=== PATIENT | female | born 1960 | race Caucasian/White ===

== ENCOUNTER 2018-11-11 05:34 | Inpatient (IN) ==
[2018-11-11] MEDS ORDERED: ceFAZolin Inj 2gm (Premix) 2 GM/50 ML BAG IV ONE ×2 (05:54→06:00)
[2018-11-11] MEDS ORDERED: Lactated Ringers 1,000 ML PRIMARY IV ONE ×2 (05:54→06:00)
[2018-11-11] MEDS ORDERED: LIDOCAINE W/ SODIUM BICARB 0.5 ML SYR ONE (05:54)
[2018-11-11] MEDS ORDERED: Vancomycin Inj 1gm vial ONE (05:55)
[2018-11-11] MEDS ORDERED: Sodium Chloride 0.9% 250 ML ONE ×2 (05:56→06:58)
[2018-11-11] MEDS ORDERED: LIDOCAINE W/ SODIUM BICARB 0.5 ML SYR SUBD ONE (06:00)
[2018-11-11] MEDS ORDERED: Nasal Sanitizer POPSWAB ampule 3 AMP (Nozin) PREOP DOSE ENOS SCH (06:00)
[2018-11-11 06:17] LABS: BILIRUBIN,URINE NEGATIVE (NEG); CLARITY,URINE CLEAR (CLEAR); COLOR,URINE YELLOW (Y); GLUCOSE, URINE (UA) NEGATIVE (NEG); OCCULT BLOOD,URINE NEGATIVE (NEG); PH,URINE 7.5 (5.0-8.5); PROTEIN,URINE TRACE mg/dl (NEG); UROBILINOGEN,URINE 0.2 EU/dL (0.2)
[2018-11-11 06:20] LABS: URINE SAMPLE TYPE CLEAN CATCH URINE
[2018-11-11] MEDS ORDERED: REMIFENTANIL 1 MG/1 ML IV ONE (06:38)
[2018-11-11] MEDS ORDERED: MIDAZOLAM 5 MG/1 ML ONE (06:38)
[2018-11-11] MEDS ORDERED: REMIFENTANIL HCL 2 MG VIAL IV ONE (06:39)
[2018-11-11] MEDS ORDERED: fentaNYL Inj 250 MCG/5 ML VIAL ONE (06:39)
[2018-11-11] MEDS ORDERED: LIDOCAINE MPF 2% - 5 ML (20 MG/1 ML) ONE (06:43)
[2018-11-11] MEDS ORDERED: Sodium Chloride 0.9% vial 10 ML ONE ×2 (06:44→07:46)
[2018-11-11] MEDS ORDERED: Propofol 1,000 MG/100 ML VIAL IV ONE ×2 (06:58→16:15)
[2018-11-11] MEDS ORDERED: THROMBIN (BOVINE) 20,000 UNIT KIT TOPICAL ONE (07:46)
[2018-11-11] MEDS ORDERED: BACITRACIN 50,000 UNIT VIAL IRRIG ONE (07:46)
[2018-11-11] MEDS ORDERED: KETAMINE HCL 100 MG/2 ML SYRINGE IV ONE (07:50)
[2018-11-11] MEDS ORDERED: DEXAMETHASONE PF 10 MG/1 ML VIAL ONE (08:13)
[2018-11-11] MEDS ORDERED: GLYCOPYRROLATE 0.2 MG/1 ML VIAL ONE (08:13)
[2018-11-11] MEDS ORDERED: LIDOCAINE W/ SODIUM BICARB 0.5 ML SYR SUBD PRN (09:13)
[2018-11-11] MEDS ORDERED: ATROPINE SULFATE 0.4 MG/1 ML VIAL IVP PRN (09:13)
[2018-11-11] MEDS ORDERED: Prochlorperazine Edisylate Inj 10mg/2ml vial IVP PRN (09:13)
[2018-11-11] MEDS ORDERED: fentaNYL Inj 100 MCG/2 ML VIAL IVP PRN (09:13)
[2018-11-11] MEDS ORDERED: Lactated Ringers 1,000 ML PRIMARY IV SCH (09:15)
[2018-11-11] MEDS ORDERED: IPRATROPIUM/ALBUTEROL SULFATE 3 ML NEB NEB ONE (09:15)
--- NOTE | 2018-11-11 09:16 | CRNA.PROGR ---
Anesthesia Time - Procedure/Recovery Time Start Date: 11/11/18 End Date: 11/11/18 Anesthesia : Time In: 07:57 Anesthesia : Time Out: 11:39 Anesthesia : Total Time: 222 - Total Anesthesia Time Total Anesthesia Time (minutes): 222 - Other Weight: 71.214 kg Height: 5 ft 5 in Body Mass Index (BMI): 26.1 Physical Status: P3 (ASCVD) Anesthesia Type: General Anesthesia : ET (NIMS Technique)
--- NOTE | 2018-11-11 09:17 | CRNA.PROGR ---
Anesthesia Recovery Phase I - Post Anesthesia Evaluation Patient's Condition on Arrival in Phase I: Stable Patient's Condition on Arrival in Phase II: Stable Pain Level: 6 (medicated)
--- NOTE | 2018-11-11 09:17 | CRNA.PROGR ---
Post Anesthesia Phase II - Post Anesthesia Phase II Patient Stable and Discharged To: Phase II Care Assumed By Surgeon: Abhilash Gomes MD Temperature: 96.8 F Pulse Rate: 59 Respiratory Rate: 16 Blood Pressure: 125/76 Pulse Ox: 96
[2018-11-11] MEDS ORDERED: ePHEDrine Inj 50 MG/ML AMP ONE (09:21)
[2018-11-11] MEDS ORDERED: ONDANSETRON 4 MG/2 ML VIAL ONE (11:18)
--- NOTE | 2018-11-11 11:22 | OPNOTE.NEU ---
Operative Note Operative Note: Neurosurgical Services Operative Note [facility] [id number] BASHIR SANCHEZ Date of Surgery: 11/11/18 Preoperative Diagnosis: CERVICAL DISC DISORDER WITH RADICULOPATHY; C6-7, C7-T1 Post-Op Diagnosis Codes: Cervical disc disorder with radiculopathy; C6-7, C7-T1 Procedure(s): C6-7, C7-T1 Anterior Cervical Decompression and Fusion 1. Anterior cervical decompression; 37675, 28453 2. Anterior cervical arthrodesis; (63970, 16592) 3. Allograft structural graft placement; [id number] 4. Preparation of bone graft: A. Local autograft, same incision; B. [place] of morselized iliac crest autograft, separate incision; C. [place] of bone marrow aspirate, iliac crest; D. Addition of osteopromotive calcium compound; allograft DBM; 5. Anterior Cervical Instrumentation; 72134 6. Intraoperative microsurgical technique, microscopy; [id number] 7. Intraoperative fluoroscopy, [id number] 8. Continuous intraoperative motor and sensory neural monitoring Surgeon(s): Abhilash Gomes MD Meter Maker(s): BHAVANI Acuna Anesthesia: General Anesthesia Anesthesiologist / CLINICAL MANAGER: Linsey Dover CRNA Brief Findings: Herniated discs at both levels bilaterally. Procedure(s): We discussed the procedure, risks, advantages and disadvantages of surgical intervention at length. To prevent further pain, disability and potential progression of neurologic deficits, the patient would like to proceed with surgery. Introduction: After obtaining informed consent, careful consideration of the pre-operative studies and evaluation, the patient asked to proceed with surgery. The patient was taken to the operating room, given an anesthetic, positioned and prepared for surgery. All pressure points were meticulously padded and great care was taken to insure the patient was appropriately positioned to avoid any abnormal strain on the extremities or any other area. The operative region was prepared with iodine solution and isolated aseptically using routine sterile draping. Position / Approach: The patient was placed in the supine position such that an anterior approach could be taken to the cervical levels. Exposure: A right transverse neck incision at the abnormal level which was confirmed using fluoroscopy was made through skin, subcutaneous fat and the platysma muscle. Using sharp and blunt dissection, the anterior spine was exposed medial to the sternocleidomastoid muscle and carotid sheath and the longus coli muscles were carefully reflected off the vertebrae using electrocautery and a deep self-retaining retractor was place beneath them. Thereafter, distraction pins were place within the vertebral bodies above and below the abnormal levels. The inner space was then distracted to improve exposure during the decompression. DECOMPRESSION: While distracting the interspace, a radical discectomy was performed. After removal of the disk using curettes considerable posterior osteophytosis was encountered and disc herniation was identified bilaterally at both levels. The osteophytes were removed using a high speed drill equipped with a katie bur, microsurgical technique and the intraoperative microscope for visualization. There was clear evidence of compression upon the exiting nerve root and spinal cord. The posterior longitudinal ligament was taken down and wide foraminotomies were fashioned on both sides. The epidural space was explored extensively confirming no further compression upon the neural elements. ARTHRODESIS: After the decompression, the height of the inner space was measured and an allograft bone graft was selected which would fit snuggly within the space. The graft was loaded with bone graft which was prepared as described. The graft was placed using the fluoroscope to assess the graft position so that it could be countersunk appropriately. Grafts were placed at both levels. HARVEST / PREPARATION of BONE GRAFT: The "bone graft" was prepared from the patient's own bone derived from the left hip collected by curetting bone from the hip through a separate slab incision(). This morselized bone was admixed with bone marrow aspirate also obtained from the hip (). Autologous local bone which was removed during the decompression through the same incision used for the fusion was stripped of surrounding soft tissues, morselized () and mixed with osteopromotive calcium compound as well as allograft demineralized bone matrix (), and this was combined with the previously described hip graft and concentrated bone marrow aspirate to form the "bone graft." ANTERIOR PLATE INSTRUMENTATION: Having completed the decompression and placement of the interbody spacers, an Alphatec Trestle plate was selected which spanned the levels and also could be contoured to the anterior aspect of the patient's cervical spine. Osteophytes along the anterior spine were removed to allow the plate to conform to the spine appropriately. The plate was then secured to the spine using 14-16 mm screws, all of which were locked into position using the locking mechanism of the plate. Additional bone graft material was placed around the plate and around the implanted spacer within the inner space. NEED FOR LICENSED NURSE PRACTITIONER: Luis Packer PA-C, was instrumental throughout the operation to assist with exposure of the neural structures and protect them as the bony elements were removed. He was also instrumental during placement of the implant(s) which often takes more than two hands to perform safely and efficiently. OTHER TOOLS USED / UTILITY All manipulation of the neural elements was performed using the microscope for visualization. As well, the fluoroscope was used to confirm the levels as indicated as well as to assist during implant placement and later to assess the patient's spinal alignment. There were no intra operative complications. CLOSURE: The wound was irrigated with copious amounts of antibiotic impregnated saline solution and immaculate hemostasis was achieved using thrombin soaked Gelfoam, bone wax along the bony margins, as well as electrocautery. Surgicel was used to cover the implanted graft and plate. A drain was placed in the pre- vertebral space and tunneled to an exit site lateral to the formed incision. The wound was then closed in anatomical layers using Vicryl suture in the subcutaneous tissue layers followed by Steri-Strips on the skin. Estimated Blood Loss: 25 cc Operative hemorrhage? Yes, expected amount. Drains: Hemovac Condition: Good Complications: None Authenticated by Dr. Gomes On Production
[2018-11-11] MEDS: HYDROmorphone 2 MG/1 ML IVP PRN ×2 (11:50→12:10)
[2018-11-11] MEDS ORDERED: HYDROmorphone 2 MG/1 ML ONE (11:51)
--- NOTE | 2018-11-11 12:42 | DI ---
XR C-SPINE 2-3 VW 11/11/2018 11:14 AM History: [facility] [place] [facility] ^Post op baseline alignment Comparison: Cervical spine x-ray 04/01/2018. Findings: AP, swimmer's, and lateral views of the cervical spine are submitted. The anterior C5/6 figueroa rdware is no longer present. The patient is now status post anterior C6-T1 fusion with interbody spac er placement. Drain tubing projects over the prevertebral soft tissues. There is no evidence of hardw are fracture or loosening. There is no acute fracture. There is grade 1 anterolisthesis of C3 on C4 a nd C4 on C5. C1 articulates normally with C2 and the occiput. No cervical ribs are seen. Visualized p ortions of the lung apices, paranasal sinuses, and mastoid air cells are clear. Atheromatous calcific ations are noted in the aortic arch. Impression: 1. Status post anterior C6-T1 fusion with interbody spacer placement. There is no evidence of hardwar e failure. There is grade 1 anterolisthesis of C3 on C4 and C4 on C5. Correlate with desired surgical outcome.
[2018-11-11] MEDS ORDERED: MORPHINE SULFATE 2 MG/1 ML IVP PRN (13:15)
[2018-11-11] MEDS ORDERED: Zolpidem Tab 5 MG TAB PO PRN (13:15)
[2018-11-11] MEDS ORDERED: LABETALOL 20 MG/4 ML (5 MG/1 ML) SYRINGE IVP PRN (13:15)
[2018-11-11] MEDS ORDERED: D5-1/2NS + 20mEq KCL 1,000 ML PRIMARY IV SCH (13:15)
[2018-11-11] MEDS ORDERED: ONDANSETRON 4 MG/2 ML VIAL IVP PRN (13:15)
[2018-11-11] MEDS ORDERED: DOCUSATE 100 MG CAPSULE PO PRN (13:15)
[2018-11-11] MEDS ORDERED: Ondansetron ODT Tab 4 MG TAB PO PRN (13:15)
[2018-11-11] MEDS ORDERED: HYDRALAZINE 20 MG/1 ML IVP PRN (13:15)
[2018-11-11] MEDS ORDERED: CALCIUM CARBONATE 500 MG (TUMS) CHEWABLE TABLET PO PRN (13:15)
[2018-11-11] MEDS ORDERED: ACETAMINOPHEN 325 MG TABLET PO PRN (13:15)
[2018-11-11 14:02] LABS: BASOPHILS # (AUTO) 0.02 10*3/UL; BASOPHILS % (AUTO) 0.2 % (0-1); EOSINOPHILS # (AUTO) 0.01 10*3/UL; EOSINOPHILS % (AUTO) 0.1 % (0-8); Hematocrit [HCT] 41.7 % (37.0-47.0); Hemoglobin [HGB] 14.6 g/dL (12.0-16.0); MEAN CORPUSCULAR HEMOGLOBIN 31.5 PG (27-31); MEAN CORPUSCULAR VOLUME 90.1 FL (81-99); MEAN PLATELET VOLUME 9.4 FL (7.4-12.2); MONOCYTES # (AUTO) 0.08 10*3/UL (0.3-0.8); MONOCYTES % (AUTO) 0.7 % (5-15); NEUTROPHILS # (AUTO) 10.05 10*3/UL; NEUTROPHILS % (AUTO) 93.1 % (50-80); RED BLOOD COUNT 4.63 10^6/uL (4.20-5.40)
[2018-11-11 14:06] LABS: BLOOD UREA NITROGEN 15 mg/dL (7-22)
[2018-11-11 14:15] LABS: PLATELET MORPHOLOGY COMMENT NORMAL MORPHOLOGY (NORM); RBC MORPHOLOGY COMMENT NORMAL MORPHOLOGY (NORM); WBC MORPHOLOGY COMMENT NORMAL MORPHOLOGY (NORM)
[2018-11-11] MEDS: oxyCODONE-ACETAMINOPHEN 5-325 TAB PO PRN (16:02)
[2018-11-11] MEDS: ceFAZolin Inj 1 GM in Sodium Chloride 0.9% 100 ML IV SCH ×2 (16:03→23:59)
[2018-11-12 04:19] VITALS: RESP 20
[2018-11-12] MEDS ORDERED: LEVOTHYROXINE 100 MCG TABLET PO SCH (05:30)
[2018-11-12] MEDS ORDERED: MAGNESIUM OXIDE 400 MG TABLET PO SCH (07:00)
[2018-11-12 07:41] VITALS: BP 115/62; TEMP 97.3; O2SAT 97
[2018-11-12] MEDS: oxyCODONE-ACETAMINOPHEN 5-325 TAB PO PRN ×2 (08:39)
[2018-11-12] MEDS: ceFAZolin Inj 1 GM in Sodium Chloride 0.9% 100 ML IV SCH (08:43)
--- NOTE | 2018-11-12 08:53 | NEURO.PROG ---
Subjective Post Op Day: 1 Pain Management: PO Zimmer Catheter: No Flatus: Yes Diet: Regular Ambulating: Yes Date of Service: 11/12/18 Time of Service: 08:50 Interval History: She is post op day 1, s/p C6-7 and C7-T1 anterior cervical discectomy and fusion. She is doing well. She his happy with her surgery and reports that her pre surgical pain has improved. No difficulty swallowing. Surgical drain output is satisfactory and will remove then discharge home. Objective : Data - Labs CBC and BMP: 11/11/18 13:51 11/11/18 13:51 - Vital Signs Vital Signs and I&O: Vital Signs - Last Taken Temperature 97.3 F 11/12/18 07:32 Pulse Rate 67 11/12/18 07:32 Respiratory Rate 20 11/12/18 07:32 Blood Pressure 115/62 11/12/18 07:32 Pulse Ox 97 11/12/18 07:32 Intake and Output (24hr x 4 totals) 11/10/18 11/11/18 11/12/18 11/13/18 05:59 05:59 05:59 05:59 Intake Total 3027 / 3027 240 / 240 Output Total 1035 / 1035 35 / 35 Balance 1991 205 / Objective : Exam - General General Appearance: No Acute Distress, Cooperative - Head Head Exam: Normal Inspection - Eye Eye Exam: Normal Appearance - ENT ENT Exam: Normal Exam - Neck Neck Exam: Normal Inspection, No Tenderness - Respiratory Respiratory Exam: Breathing Non Labored - Cardiovascular Cardiovascular Exam: RRR - GI/Abdominal GI/Abdominal Exam: Non Tender, Non Distended - Rectal Rectal Exam: Deferred - External Exam: Deferred Exam: Deferred - Extremities Extremities Exam: Normal Inspection, Full ROM - Back Back Exam: Full ROM - Neurological Neurological Exam: Alert, Oriented x 3 - Psychiatric Psychiatric Exam: Normal Affect, Normal Mood - Integumentary Integumentary Exam: Warm, Dry Additional Integumentary Exam Details: Right anterior cervical intact surgical wound with surgical drain. Surgical drain output satisfactory and removed. - Central Line Examination Central Line Present on Admission: No Assessment and Plan - Assessment / Plan Additional Assessment/Plan Details: Post op Day 1, s/p anterior cervical discectomy and fusion, C6-7 and C7-T1. She is doing well. Surgical drain output is satisfactory and removed. Discussed surgical wound care. Follow up in [place] with DES Sparks or in [place] with Dr. Gomes in 2 weeks. Plan discharge home.
[2018-11-12] MEDS ORDERED: ALPRAZolam Tab 0.25 MG TABLET PO PRN (09:00)
[2018-11-12] MEDS ORDERED: Potassium Chloride Tab 10 MEQ TAB PO SCH (09:00)
--- NOTE | 2018-11-12 09:05 | CRNA.PROGR ---
Anesthesia Note - Progress Notes Anesthesia Progress Note: Very cheerful and chatty. Neck drain out. States her pain is reasonable. No nausea. States she's going home soon. Vital Signs - Last Taken Temperature 97.3 F 11/12/18 07:32 Pulse Rate 67 11/12/18 07:32 Respiratory Rate 20 11/12/18 07:32 Blood Pressure 115/62 11/12/18 07:32 Pulse Ox 97 11/12/18 07:32 No apparent anesthetic difficulties.
--- NOTE | 2018-11-12 15:38 | PTI REPORT ---
Thank you for the referral of Jailene Koo. She was seen on 11/12/18 for an inpatient evaluation status post cervical fusion. SUBJECTIVE: The patient is a 58-year-old female. The patient reports that she lives in [place] with her and her son. She has about 16 stairs to get into her home with a hand rail. She was previously independent. The patient has very minimal pain, the only pain she has is in her knee and she has some pain and complaints with the IV. PAST MEDICAL HISTORY: Past medical history can be found in the patient's medical record. OBJECTIVE FINDINGS: General observations: The patient was on an IV. Bed mobility: The patient was stand by assist for bed mobility including supine to sit transfer to edge of bed. Activities of daily living: The patient was independent with putting her socks on. Transfers: The patient was contact guard assist x1 for sit to stand transfer. Ambulation: The patient was able to ambulate approximately 180 feet with contact guard assist x1 with IV pole follow. The patient was instructed to perform four sets of four stairs with single hand rail with contact guard assist x1 and no loss of balance noted. ASSESSMENT: The patient is a 58-year-old female that presents status post cervical fusion. The patient is doing very well at this time and is safe to return home. TREATMENT PLAN: Patient will be discharged from PT secondary to meeting all goals. INITIAL TREATMENT: Treatment today consisted of the initial evaluation followed by the patient transferring back to bed after ambulation around the nurse's station and stair trial. The patient was left in bed with bed alarm activated, IV plugged in, and call light within reach. [facility]
== END 2018-11-12 10:23 | disposition home or self-care (01) | DRG 30 ==
LOC: OR 05:34 → MED/SURG 13:15
PROVIDERS: ADMIT Neurological Surgery; ATTEND Neurological Surgery